=== PATIENT | male | born 1965 | race Caucasian/White ===

== ENCOUNTER 2016-10-01 08:36 | Emergency (ER) | payer OTHER ==
[~2016-10-01 08:36] MED LIST: BACT800T5 PO; CELE10TA PO; COMP1TAB PO; DEXA1TA PO; DEXA2TA PO; DEXA4TA PO; DOCU10CA PO; ELIQ5TAB PO; FURO20TA2 PO; IBUPOTC PO; KEPP1TAB2 PO; KEPP250T5 PO; KEPP500T6 PO; NORC5TAB PO; NORCOTAB PO; OMEP20CA3 PO; ONDA4TAB6 PO; PRIL20CA PO; SENN-22 PO; SENN1TAB3 PO; STOO100C PO; TEMO140C3 PO; TYLE325T5 PO; decadron PO
--- NOTE | 2016-10-01 10:08 | REP ---
CT HEAD WITHOUT CONTRAST: HISTORY: Headache. COMPARISON: 08/04/2016. The patient is status post left parietal craniotomy. A hypodense mass with surrounding vasogenic edema is present in the left parietal lobe. The vasogenic edema is decreased compared to the previous study. There is mass effect with partial effacement of the overlying cortical sulci and body of the left lateral ventricle with very minimal midline shift to the right. The degree of midline shift is decreased. There is no hydrocephalus or extracerebral collection. The visualized sinuses are clear. IMPRESSION: 1. The patient is status post left parietal craniotomy. 2. Left parietal lobe hypodense mass with vasogenic edema that has decreased compared to the previous study. Signed by Chidi Pastrana MD 10/01/2016 10:13 A
[2016-10-01] MEDS ORDERED: HYDROmorphone HCL 1 MG/ML SYRINGE (J1170) As Ordered ONE (10:48)
[2016-10-01 11:18] LABS: BASO % 0.3 % (0.0-1.0); EOS % 0.5 % (0.0-3.0); LARGE UNSTAINED CELL # 0.1 K/mm3 (0.0-0.4); LARGE UNSTAINED CELL % 1.6 % (0.0-4.0); LYMPH # 0.6 K/mm3 (1.5-4.5); LYMPH % 8.9 % (24.0-44.0); MEAN CORPUSCULAR HEMOGLOBIN 31.4 pg (27.0-33.0); MEAN CORPUSCULAR HGB CONC 33.6 g/dl (32.0-36.5); MEAN CORPUSCULAR VOLUME 93.3 fl (80.0-96.0); MONO # 0.4 K/mm3 (0.0-0.8); NEUTROPHILS # 5.1 K/mm3 (1.8-7.7); NEUTROPHILS % 82.6 % (36.0-66.0); PLATELET COUNT, AUTOMATED 163 k/mm3 (150-450); RED CELL DISTRIBUTION WIDTH 13.2 % (11.5-14.5); WHITE BLOOD COUNT 6.2 K/mm3 (4.0-10.0)
[2016-10-01 11:36] LABS: ANION GAP 10 MEQ/L (8-16); BLOOD UREA NITROGEN 12 MG/DL (7-18); CALCIUM LEVEL 8.6 MG/DL (8.5-10.1); CARBON DIOXIDE LEVEL 28 MEQ/L (21-32); CHLORIDE LEVEL 105 MEQ/L (98-107); CREATININE FOR GFR 0.77 MG/DL (0.70-1.30); GLOMERULAR FILTRATION RATE > 60.0 (>56); GLUCOSE, FASTING 82 MG/DL (70-105); POTASSIUM SERUM 3.9 MEQ/L (3.5-5.1); SODIUM LEVEL 143 MEQ/L (136-145)
--- NOTE | 2016-10-01 12:13 | EDDOCDS ---
Physician Documentation [facility] Name: Jeronimo Reza Age: 51 yrs Sex: Male : 1965 Arrival Date: 10/01/2016 Time: 08:36 Bed 15 Private MD: Amparo Sheldon J. Disposition: 10/01/16 11:47 Discharged to Home/Self Care. Impression: Headache. - Condition is Stable. - Discharge Instructions: General Headache Without Cause. - Medication Reconciliation form. - Follow up: Emergency Department; When: As needed. Follow up: Private Physician; When: Call to arrange an appointment; Reason: Wound/Symptom Recheck, Recheck today's complaints, Worsening of conditions, Continuance of care. - Problem is chronic. - Symptoms have improved. Historical: - Allergies: no known allergies; - Home Meds: 1. Eliquis 5 mg oral tab 1 tab 2 times per day (Last dose: 09/30/2016) 2. dexamethasone 1 mg Oral tab 3 times per day (Last dose: 09/30/2016) 3. omeprazole 40 mg Oral cpDR nightly (Last dose: 09/30/2016) 4. Celexa 10 mg Oral tab 1 tab once daily (Last dose: 09/30/2016) 5. levetiracetam 750 mg oral tab 1 tab twice a day (Last dose: 09/30/2016) 6. Bactrim DS 800-160 mg Oral tab 1 tab once daily (Last dose: 09/30/2016) - PMHx: Brain tumor; DVT; Glioblastoma - Left Parietal Lobe; - PSHx: brain surgery (2015); - Social history: Smoking status: Patient states was never smoker of tobacco. No barriers to communication noted, The patient speaks fluent Mozambican. - Family history: Not pertinent. - : The pt / caregiver states he / she is on anticoagulants: Eliquis Home medication list is obtained from family members, [employer] import data, pill bottles. - Exposure Risk Screening:: None identified. Vital Signs: 10/01 08:38 BP 148 / 92; Pulse 82; Resp 18; Temp 98.8(T); Pulse Ox 98% on R/A; Weight 88 kg / dem1 194.01 lbs (M); Height 5 ft. 5 in. (165.10 cm) (R); Pain 6/10; 09:21 BP 154 / 84 (auto/); pml 09:23 Pulse Ox 96% ; pml 09:30 Pulse Ox 96% ; pml 09:37 BP 148 / 81 (auto/); pml 11:10 Pain 10/10; pml 12:10 BP 141 / 79; Pulse 77; Resp 18; Temp 97.2; Pulse Ox 99% ; Pain 10/10; pml 08:38 Body Mass Index 32.28 (88.00 kg, 165.10 cm) dem1 MDM: 09:26 IV Saline Lock ordered. cc10 09:26 Dilaudid - HYDROmorphone 0.5 mg IVP once ordered. cc10 09:26 Consult: Independent Jeweler ordered. cc10 09:27 CBC with Diff Ordered. EDMS 09:27 BMP Ordered. EDMS 09:27 CRP Ordered. EDMS 09:28 CT Head Without Contrast Ordered. EDMS 10:22 Consult: Independent Jeweler complete. pml 10:49 [facility] Payment Agreement was scanned into [employer] and attached to record. jp5 10:49 Financial registration complete. jp5 11:23 CBC with Diff Reviewed. cc10 11:23 CT Head Without Contrast Reviewed. cc10 11:47 BMP Reviewed. cc10 11:47 CRP Reviewed. cc10 Administered Medications: 10:52 Drug: Dilaudid - HYDROmorphone 0.5 mg [hydromorphone 1 mg/mL injection syringe (0.5 pml mL)] Route: IVP; Site: left hand; 11:10 Follow up: Pain 07/06 Adult; Response: Confirmed pt not driving.; No significant change.[facility] Signatures: Dispatcher [employer] EDKristin Brumfield,RN RN kr3 Sheyla Lin,RN RN pml Inocencio Nichole, PANicoleC PAVida cc10 Elizabeth Gracia jp5 The chart was reviewed and I authenticate all verbal orders and agree with the evaluation and treatment provided.Attachments: 10:49 [facility] Payment Agreement jp5 MTDD
--- NOTE | 2016-10-01 12:13 | EDDOCDS ---
Nurse's Notes [facility] Name: Jeronimo Reza Age: 51 yrs Sex: Male : 1965 Arrival Date: 10/01/2016 Time: 08:36 Bed 15 Private MD: Amparo Sheldon J. Diagnosis: Headache Presentation: 10/01 08:41 Presenting complaint: Mother states: increase agitation and combativeness. Reports kr3 patient wants to live on own. Wants to speak with social sciences research scientist. Reports was told to come to ED by Dr Sheldon. This patient has no additional risk factors. Adult Sepsis Screening: The patient does not have new or worsening altered mentation. Patient's respiratory rate is less than 22. Systolic blood pressure is greater than 100. Patient has a qSOFA score of 0- Negative Sepsis Screen. Suicide/Homicide risk assessment- the patient denies having any suicidal and/or homicidal ideations and does not present with any other emotional, behavioral or mental health complaints. Status: Patient is not a job service consultant or dependent. Transition of care: patient was not received from another setting of care. 08:41 Acuity: JEFFY Level 3 kr3 08:41 Method Of Arrival: Walkin/Carried/Asstd kr3 Triage Assessment: 08:46 Headache History: This patient has a history of headaches and the character of this kr3 headache is like all previous headaches. General: Appears in no apparent distress, comfortable, Behavior is appropriate for age, cooperative. Pain: Pain currently is 5 out of 10 on a pain scale. Pain began ongoing problem Also complains of headache left side of head and worsening of vision left eye. HIV screening NA for this visit Offered previously. Neurological: Level of Consciousness is awake, alert. Neurological: Reports gait has become more unsteady. Respiratory: Respiratory effort is even, unlabored. Derm: Skin is normal. Historical: - Allergies: no known allergies; - Home Meds: 1. Eliquis 5 mg oral tab 1 tab 2 times per day (Last dose: 09/30/2016) 2. dexamethasone 1 mg Oral tab 3 times per day (Last dose: 09/30/2016) 3. omeprazole 40 mg Oral cpDR nightly (Last dose: 09/30/2016) 4. Celexa 10 mg Oral tab 1 tab once daily (Last dose: 09/30/2016) 5. levetiracetam 750 mg oral tab 1 tab twice a day (Last dose: 09/30/2016) 6. Bactrim DS 800-160 mg Oral tab 1 tab once daily (Last dose: 09/30/2016) - PMHx: Brain tumor; DVT; Glioblastoma - Left Parietal Lobe; - PSHx: brain surgery (2016); - Social history: Smoking status: Patient states was never smoker of tobacco. No barriers to communication noted, The patient speaks fluent Nicaraguan. - Family history: Not pertinent. - : The pt / caregiver states he / she is on anticoagulants: Eliquis Home medication list is obtained from family members, [employer] import data, pill bottles. - Exposure Risk Screening:: None identified. Screenin:24 Screening information is obtained from the patient. Fall risk: No risks identified. pml Assistance ADL's: requires no assistance with activities of daily living. Abuse/DV Screen: The patient / caregiver reports he/she is: not in a situation that causes fear, pain or injury. Nutritional screening: No deficits noted. Advance Directives: Currently, there is no health care proxy. home support is adequate. Assessment: 09:24 General: Appears in no apparent distress, Behavior is appropriate for age, cooperative. pml Pain: Location: headache Pain currently is 9 out of 10 on a pain scale. Neurological: Level of Consciousness is awake, alert, Oriented to person, place, time, Clay Modeler are equal bilaterally Moves all extremities. Gait is unsteady, reported by mother - not assessed at this time. Speech is normal, Facial symmetry appears normal, Reports blurred vision diplopia, headache. Cardiovascular: Capillary refill < 3 seconds. Respiratory: Airway is patent Respiratory effort is even, unlabored. GI: Abdomen is non- distended. Derm: Skin is pink, warm & dry. 09:45 General: Pt agitated, stating he wants to go home. mother at bedside refuses to take pt pml home. PSA in to see patient. ordered interventions held at this time per pt request. JOHN Larkin aware. 10:54 General: Appears in no apparent distress, Behavior is appropriate for age, cooperative. pml 10:54 Pain: Location: headache Pain currently is 8 out of 10 on a pain scale. Neurological: pml Level of Consciousness is awake, alert, Oriented to person, place, time. Cardiovascular: Capillary refill < 3 seconds. Respiratory: Airway is patent Respiratory effort is even, unlabored. Derm: Skin is pink, warm & dry. 11:35 General: mother and PSA Loc at bedside discussing options for further assistance pml with care . 12:09 General: Appears in no apparent distress, comfortable, Behavior is appropriate for age, pml cooperative. Pain: Location: headache Pain currently is 10 out of 10 on a pain scale. Neurological: Level of Consciousness is awake, alert, Oriented to person, place, time. Cardiovascular: Capillary refill < 3 seconds. Respiratory: Airway is patent Respiratory effort is even, unlabored. Derm: Skin is pink, warm & dry. Vital Signs: 08:38 BP 148 / 92; Pulse 82; Resp 18; Temp 98.8(T); Pulse Ox 98% on R/A; Weight 88 kg (M); dem1 Height 5 ft. 5 in. (165.10 cm) (R); Pain 6/10; 09:21 BP 154 / 84 (auto/); pml 09:23 Pulse Ox 96% ; pml 09:30 Pulse Ox 96% ; pml 09:37 BP 148 / 81 (auto/); pml 11:10 Pain 10/10; pml 12:10 BP 141 / 79; Pulse 77; Resp 18; Temp 97.2; Pulse Ox 99% ; Pain 10/10; pml 08:38 Body Mass Index 32.28 (88.00 kg, 165.10 cm) [facility] Vitals: 08:38 Log In Time: October 01, 2016 at 08:36. [facility] ED Course: 08:37 Patient visited by Fina Cabrera. dem1 08:37 Patient moved to Waiting dem1 08:38 Amparo Sheldon is Private Physician. dem1 08:39 Patient visited by Fina Cabrera. dem1 08:40 Patient moved to Triage 1 dem1 08:43 Triage Initiated kr3 08:49 Patient moved to 15 kr3 09:04 Patient visited by Aj Ramos PCA. jlf 09:18 Inocencio Nichole PA-C is PHCP. cc10 09:18 Sanjuanita Juares MD is Attending Physician. cc10 09:18 Patient visited by Inocencio Nichole PA-C. cc10 09:18 Patient visited by Inocencio Nichole PA-C. cc10 09:24 The patient / caregiver is instructed regarding the plan of care and ED course. Patient pml has correct armband on for positive identification. Placed in gown. Bed in low position. Call light in reach. Side rails up X2. 09:26 Patient visited by Sheyla Lin,FRANCISCO JAVIER. pml 09:43 Patient visited by Aj Ramos PCA. jlf 10:14 Patient visited by Aj Ramos PCA. jlf 10:26 Patient visited by Aj Ramos PCA. jlf 10:28 CT Head Without Contrast Returned. EDMS 10:45 Inserted peripheral IV: 20gauge IV in left hand Patient tolerated the procedure well. pml 10:49 [facility] Payment Agreement was scanned into [employer] and attached to record. jp5 10:51 Patient visited by Aj Ramos PCA. jlf 10:54 Patient visited by Sheyla Lin RN. pml 11:35 Patient visited by Sheyla Lin RN. pml 12:11 Discontinued lock intact, bleeding controlled, pressure dressing applied, No pml redness/swelling at site. No procedures done that require assistance. Administered Medications: 10:52 Drug: Dilaudid - HYDROmorphone 0.5 mg [hydromorphone 1 mg/mL injection syringe (0.5 pml mL)] Route: IVP; Site: left hand; 11:10 Follow up: Pain 07/06 Adult; Response: Confirmed pt not driving.; No significant change.pml Order Results: Lab Order: CBC with Diff; SPEC'M 10/01/16 11:06 Test: WHITE BLOOD COUNT; Value: 6.2; Range: 4.0-10.0; Units: K/mm3; Status: F Test: RED BLOOD COUNT; Value: 4.57; Range: 4.30-6.10; Units: M/mm3; Status: F Test: HEMOGLOBIN; Value: 14.3; Range: 14.0-18.0; Units: g/dl; Status: F Test: HEMATOCRIT; Value: 42.6; Range: 42.0-52.0; Units: %; Status: F Test: MEAN CORPUSCULAR VOLUME; Value: 93.3; Range: 80.0-96.0; Units: fl; Status: F Test: MEAN CORPUSCULAR HEMOGLOBIN; Value: 31.4; Range: 27.0-33.0; Units: pg; Status: F Test: MEAN CORPUSCULAR HGB CONC; Value: 33.6; Range: 32.0-36.5; Units: g/dl; Status: F Test: RED CELL DISTRIBUTION WIDTH; Value: 13.2; Range: 11.5-14.5; Units: %; Status: F Test: PLATELET COUNT, AUTOMATED; Value: 163; Range: 150-450; Units: k/mm3; Status: F Test: NEUTROPHILS %; Value: 82.6; Range: 36.0-66.0; Abnormal: Above high normal; Units: %; Status: F Test: LYMPH %; Value: 8.9; Range: 24.0-44.0; Abnormal: Below low normal; Units: %; Status: F Test: MONO %; Value: 6.0; Range: 0.0-5.0; Abnormal: Above high normal; Units: %; Status: F Test: EOS %; Value: 0.5; Range: 0.0-3.0; Units: %; Status: F Test: BASO %; Value: 0.3; Range: 0.0-1.0; Units: %; Status: F Test: LARGE UNSTAINED CELL %; Value: 1.6; Range: 0.0-4.0; Units: %; Status: F Test: NEUTROPHILS #; Value: 5.1; Range: 1.8-7.7; Units: K/mm3; Status: F Test: LYMPH #; Value: 0.6; Range: 1.5-4.5; Abnormal: Below low normal; Units: K/mm3; Status: F Test: MONO #; Value: 0.4; Range: 0.0-0.8; Units: K/mm3; Status: F Test: EOS #; Value: 0.0; Range: 0.0-0.50; Units: K/mm3; Status: F Test: BASO #; Value: 0.0; Range: 0.0-0.2; Units: K/mm3; Status: F Test: LARGE UNSTAINED CELL #; Value: 0.1; Range: 0.0-0.4; Units: K/mm3; Status: F Lab Order: BMP; SPEC'M 10/01/16 11:06 Test: GLUCOSE, FASTING; Value: 82; Range: 70-105; Units: MG/DL; Status: F Test: BLOOD UREA NITROGEN; Value: 12; Range: 7-18; Units: MG/DL; Status: F Test: CREATININE FOR GFR; Value: 0.77; Range: 0.70-1.30; Units: MG/DL; Status: F Test: GLOMERULAR FILTRATION RATE; Value: > 60.0; Range: >56; Status: F Test: SODIUM LEVEL; Value: 143; Range: 136-145; Units: MEQ/L; Status: F Test: POTASSIUM SERUM; Value: 3.9; Range: 3.5-5.1; Units: MEQ/L; Status: F Test: CHLORIDE LEVEL; Value: 105; Range: 98-107; Units: MEQ/L; Status: F Test: CARBON DIOXIDE LEVEL; Value: 28; Range: 21-32; Units: MEQ/L; Status: F Test: ANION GAP; Value: 10; Range: 8-16; Units: MEQ/L; Status: F Test: CALCIUM LEVEL; Value: 8.6; Range: 8.5-10.1; Units: MG/DL; Status: F Test Note: ; Units are mL/min/1.73 m2 Chronic Kidney Disease Staging per NKF: Stage I & II GFR >=60 Normal to Mildly Decreased Stage III GFR 30-59 Moderately Decreased Stage IV GFR 15-29 Severely Decreased Stage V GFR <15 Very Little GFR Left ESRD GFR <15 on PRINCIPAL SOFTWARE ARCHITECT Lab Order: CRP; SPEC'M 10/01/16 11:06 Test: C REACTIVE PROTEIN QUANTITATIV; Value: < 0.30; Range: 0.00-0.30; Units: MG/DL; Status: F Radiology Order: CT Head Without Contrast Test: CT Head Without Contrast REASON FOR EXAMINATION: KENNEY; CT HEAD WITHOUT CONTRAST:; ; HISTORY: Headache.; ; COMPARISON: 08/04/2016.; ; The patient is status post left parietal craniotomy. A hypodense mass with; surrounding vasogenic edema is present in the left parietal lobe. The vasogenic; edema is decreased compared to the previous study. There is mass effect with; partial effacement of the overlying cortical sulci and body of the left; lateral ventricle with very minimal midline shift to the right. The degree of; midline shift is decreased. There is no hydrocephalus or extracerebral; collection. The visualized sinuses are clear.; ; IMPRESSION:; ; 1. The patient is status post left parietal craniotomy.; ; 2. Left parietal lobe hypodense mass with vasogenic edema that has decreased; compared to the previous study.; ; ; Signed by; Chidi Pastrana MD 10/01/2016 10:13 A; Outcome: 11:47 Discharge ordered by Provider. cc10 12:11 Discharge Assessment: Patient awake, alert and oriented x 3. No cognitive and/or pml functional deficits noted. Patient verbalized understanding of disposition instructions. patient administered narcotics - yes. Pt provided with safe discharge. The following High Risk Discharge criteria are identified: None. Discharged to home ambulatory, with parent. Condition: good Condition: stable. Discharge instructions given to patient, parents Instructed on discharge instructions, follow up and referral plans. Demonstrated understanding of instructions, Pt was receptive of discharge instructions/ teaching. CT Study completed. Property sent home with patient. 12:12 Patient left the ED. pml Signatures: Dispatcher [employer] EDMS Kristin Price,RN RN kr3 Sheyla LinRN RN pml Fina Cabrera Jordain, LORA WALL TAPER HELPER Inocencio Fu PA-C PAVida cc10 Elizabeth Gracia jp5 MTDD
--- NOTE | 2016-10-03 13:14 | EDDOCDS ---
Nurse's Notes [facility] Name: Jeronimo Reza Age: 51 yrs Sex: Male : 1965 Arrival Date: 10/01/2016 Time: 08:36 Bed 15 Private MD: Amparo Sheldon J. Diagnosis: Headache Presentation: 10/01 08:41 Presenting complaint: Mother states: increase agitation and combativeness. Reports kr3 patient wants to live on own. Wants to speak with social media director. Reports was told to come to ED by Dr Sheldon. This patient has no additional risk factors. Adult Sepsis Screening: The patient does not have new or worsening altered mentation. Patient's respiratory rate is less than 22. Systolic blood pressure is greater than 100. Patient has a qSOFA score of 0- Negative Sepsis Screen. Suicide/Homicide risk assessment- the patient denies having any suicidal and/or homicidal ideations and does not present with any other emotional, behavioral or mental health complaints. Status: Patient is not a bellhop service captain or dependent. Transition of care: patient was not received from another setting of care. 08:41 Acuity: JEFFY Level 3 kr3 08:41 Method Of Arrival: Walkin/Carried/Asstd kr3 Triage Assessment: 08:46 Headache History: This patient has a history of headaches and the character of this kr3 headache is like all previous headaches. General: Appears in no apparent distress, comfortable, Behavior is appropriate for age, cooperative. Pain: Pain currently is 5 out of 10 on a pain scale. Pain began ongoing problem Also complains of headache left side of head and worsening of vision left eye. HIV screening NA for this visit Offered previously. Neurological: Level of Consciousness is awake, alert. Neurological: Reports gait has become more unsteady. Respiratory: Respiratory effort is even, unlabored. Derm: Skin is normal. Historical: - Allergies: no known allergies; - Home Meds: 1. Eliquis 5 mg oral tab 1 tab 2 times per day (Last dose: 09/30/2016) 2. dexamethasone 1 mg Oral tab 3 times per day (Last dose: 09/30/2016) 3. omeprazole 40 mg Oral cpDR nightly (Last dose: 09/30/2016) 4. Celexa 10 mg Oral tab 1 tab once daily (Last dose: 09/30/2016) 5. levetiracetam 750 mg oral tab 1 tab twice a day (Last dose: 09/30/2016) 6. Bactrim DS 800-160 mg Oral tab 1 tab once daily (Last dose: 09/30/2016) - PMHx: Brain tumor; DVT; Glioblastoma - Left Parietal Lobe; - PSHx: brain surgery (2016); - Social history: Smoking status: Patient states was never smoker of tobacco. No barriers to communication noted, The patient speaks fluent Peruvian. - Family history: Not pertinent. - : The pt / caregiver states he / she is on anticoagulants: Eliquis Home medication list is obtained from family members, [employer] import data, pill bottles. - Exposure Risk Screening:: None identified. Screenin:24 Screening information is obtained from the patient. Fall risk: No risks identified. pml Assistance ADL's: requires no assistance with activities of daily living. Abuse/DV Screen: The patient / caregiver reports he/she is: not in a situation that causes fear, pain or injury. Nutritional screening: No deficits noted. Advance Directives: Currently, there is no health care proxy. home support is adequate. Assessment: 09:24 General: Appears in no apparent distress, Behavior is appropriate for age, cooperative. pml Pain: Location: headache Pain currently is 9 out of 10 on a pain scale. Neurological: Level of Consciousness is awake, alert, Oriented to person, place, time, Plasterer Stucco are equal bilaterally Moves all extremities. Gait is unsteady, reported by mother - not assessed at this time. Speech is normal, Facial symmetry appears normal, Reports blurred vision diplopia, headache. Cardiovascular: Capillary refill < 3 seconds. Respiratory: Airway is patent Respiratory effort is even, unlabored. GI: Abdomen is non- distended. Derm: Skin is pink, warm & dry. 09:45 General: Pt agitated, stating he wants to go home. mother at bedside refuses to take pt pml home. PSA in to see patient. ordered interventions held at this time per pt request. JOHN Larkin aware. 10:54 General: Appears in no apparent distress, Behavior is appropriate for age, cooperative. pml 10:54 Pain: Location: headache Pain currently is 8 out of 10 on a pain scale. Neurological: pml Level of Consciousness is awake, alert, Oriented to person, place, time. Cardiovascular: Capillary refill < 3 seconds. Respiratory: Airway is patent Respiratory effort is even, unlabored. Derm: Skin is pink, warm & dry. 11:35 General: mother and PRIYANK Monterroso at bedside discussing options for further assistance pml with care . 12:09 General: Appears in no apparent distress, comfortable, Behavior is appropriate for age, pml cooperative. Pain: Location: headache Pain currently is 10 out of 10 on a pain scale. Neurological: Level of Consciousness is awake, alert, Oriented to person, place, time. Cardiovascular: Capillary refill < 3 seconds. Respiratory: Airway is patent Respiratory effort is even, unlabored. Derm: Skin is pink, warm & dry. Social Work Consult: 12:29 Social Work Note: Met with pt and his mother at length. Both appear stressed over their ca situation and pt's dx. Mother is primary caregiver and expresses frustration with pt's deterioration and difficulty in caring for him due to pt's perceived lack of cooperation. Pt has been telling mom he wants to live elsewhere, at this time that is not feasible due to his need for help at home. Took mother to family room to talk and offered emotional support. Resources offered for care and for counseling. Accepted by mother. Asked Matti Monterroso to speak with the family to determine eligibility for care mngt services. Vital Signs: 08:38 BP 148 / 92; Pulse 82; Resp 18; Temp 98.8(T); Pulse Ox 98% on R/A; Weight 88 kg (M); dem1 Height 5 ft. 5 in. (165.10 cm) (R); Pain 6/10; 09:21 BP 154 / 84 (auto/); pml 09:23 Pulse Ox 96% ; pml 09:30 Pulse Ox 96% ; pml 09:37 BP 148 / 81 (auto/); pml 11:10 Pain 10/10; pml 12:10 BP 141 / 79; Pulse 77; Resp 18; Temp 97.2; Pulse Ox 99% ; Pain 10/10; pml 08:38 Body Mass Index 32.28 (88.00 kg, 165.10 cm) [facility] Vitals: 08:38 Log In Time: October 01, 2016 at 08:36. [facility] ED Course: 08:37 Patient visited by Fina Cabrera. [facility] 08:37 Patient moved to Waiting [facility] 08:38 Amparo Sheldon is Private Physician. dem1 08:39 Patient visited by Fina Cabrera. dem1 08:40 Patient moved to Triage 1 dem1 08:43 Triage Initiated kr3 08:49 Patient moved to 15 kr3 09:04 Patient visited by Aj Ramos PCA. jlf 09:18 Inocencio Nichole PA-C is PHCP. cc10 09:18 Sanjuanita Juares MD is Attending Physician. cc10 09:18 Patient visited by Inocencio Nichole PA-C. cc10 09:18 Patient visited by Inocencio Nichole PA-C. cc10 09:24 The patient / caregiver is instructed regarding the plan of care and ED course. Patient pml has correct armband on for positive identification. Placed in gown. Bed in low position. Call light in reach. Side rails up X2. 09:26 Patient visited by Sheyla Lin RN. pml 09:43 Patient visited by Aj Ramos PCA. jlf 10:14 Patient visited by Aj Ramos PCA. jlf 10:26 Patient visited by Aj Ramos PCA. jlf 10:28 CT Head Without Contrast Returned. EDMS 10:45 Inserted peripheral IV: 20gauge IV in left hand Patient tolerated the procedure well. pml 10:49 [facility] Payment Agreement was scanned into [employer] and attached to record. jp5 10:51 Patient visited by Aj Ramos PCA. jlf 10:54 Patient visited by Sheyla Lin,FRANCISCO JAVIER. pml 11:35 Patient visited by Sheyla Lin RN. pml 12:11 Discontinued lock intact, bleeding controlled, pressure dressing applied, No pml redness/swelling at site. No procedures done that require assistance. 10/02 07:29 T-Sheet-- Draft Copy was scanned into [employer] and attached to record. gb Administered Medications: 10/01 10:52 Drug: Dilaudid - HYDROmorphone 0.5 mg [hydromorphone 1 mg/mL injection syringe (0.5 pml mL)] Route: IVP; Site: left hand; 11:10 Follow up: Pain 10 Adult; Response: Confirmed pt not driving.; No significant change.pml Order Results: Lab Order: CBC with Diff; SPEC'M 10/01/16 11:06 Test: WHITE BLOOD COUNT; Value: 6.2; Range: 4.0-10.0; Units: K/mm3; Status: F Test: RED BLOOD COUNT; Value: 4.57; Range: 4.30-6.10; Units: M/mm3; Status: F Test: HEMOGLOBIN; Value: 14.3; Range: 14.0-18.0; Units: g/dl; Status: F Test: HEMATOCRIT; Value: 42.6; Range: 42.0-52.0; Units: %; Status: F Test: MEAN CORPUSCULAR VOLUME; Value: 93.3; Range: 80.0-96.0; Units: fl; Status: F Test: MEAN CORPUSCULAR HEMOGLOBIN; Value: 31.4; Range: 27.0-33.0; Units: pg; Status: F Test: MEAN CORPUSCULAR HGB CONC; Value: 33.6; Range: 32.0-36.5; Units: g/dl; Status: F Test: RED CELL DISTRIBUTION WIDTH; Value: 13.2; Range: 11.5-14.5; Units: %; Status: F Test: PLATELET COUNT, AUTOMATED; Value: 163; Range: 150-450; Units: k/mm3; Status: F Test: NEUTROPHILS %; Value: 82.6; Range: 36.0-66.0; Abnormal: Above high normal; Units: %; Status: F Test: LYMPH %; Value: 8.9; Range: 24.0-44.0; Abnormal: Below low normal; Units: %; Status: F Test: MONO %; Value: 6.0; Range: 0.0-5.0; Abnormal: Above high normal; Units: %; Status: F Test: EOS %; Value: 0.5; Range: 0.0-3.0; Units: %; Status: F Test: BASO %; Value: 0.3; Range: 0.0-1.0; Units: %; Status: F Test: LARGE UNSTAINED CELL %; Value: 1.6; Range: 0.0-4.0; Units: %; Status: F Test: NEUTROPHILS #; Value: 5.1; Range: 1.8-7.7; Units: K/mm3; Status: F Test: LYMPH #; Value: 0.6; Range: 1.5-4.5; Abnormal: Below low normal; Units: K/mm3; Status: F Test: MONO #; Value: 0.4; Range: 0.0-0.8; Units: K/mm3; Status: F Test: EOS #; Value: 0.0; Range: 0.0-0.50; Units: K/mm3; Status: F Test: BASO #; Value: 0.0; Range: 0.0-0.2; Units: K/mm3; Status: F Test: LARGE UNSTAINED CELL #; Value: 0.1; Range: 0.0-0.4; Units: K/mm3; Status: F Lab Order: [facility]; SPEC'M 10/01/16 11:06 Test: GLUCOSE, FASTING; Value: 82; Range: 70-105; Units: MG/DL; Status: F Test: BLOOD UREA NITROGEN; Value: 12; Range: 7-18; Units: MG/DL; Status: F Test: CREATININE FOR GFR; Value: 0.77; Range: 0.70-1.30; Units: MG/DL; Status: F Test: GLOMERULAR FILTRATION RATE; Value: > 60.0; Range: >56; Status: F Test: SODIUM LEVEL; Value: 143; Range: 136-145; Units: MEQ/L; Status: F Test: POTASSIUM SERUM; Value: 3.9; Range: 3.5-5.1; Units: MEQ/L; Status: F Test: CHLORIDE LEVEL; Value: 105; Range: 98-107; Units: MEQ/L; Status: F Test: CARBON DIOXIDE LEVEL; Value: 28; Range: 21-32; Units: MEQ/L; Status: F Test: ANION GAP; Value: 10; Range: 8-16; Units: MEQ/L; Status: F Test: CALCIUM LEVEL; Value: 8.6; Range: 8.5-10.1; Units: MG/DL; Status: F Test Note: ; Units are mL/min/1.73 m2 Chronic Kidney Disease Staging per NKF: Stage I & II GFR >=60 Normal to Mildly Decreased Stage III GFR 30-59 Moderately Decreased Stage IV GFR 15-29 Severely Decreased Stage V GFR <15 Very Little GFR Left ESRD GFR <15 on ENDLESS STEAMER TENDER Lab Order: CRP; SPEC'M 10/01/16 11:06 Test: C REACTIVE PROTEIN QUANTITATIV; Value: < 0.30; Range: 0.00-0.30; Units: MG/DL; Status: F Radiology Order: CT Head Without Contrast Test: CT Head Without Contrast REASON FOR EXAMINATION: KENNEY; CT HEAD WITHOUT CONTRAST:; ; HISTORY: Headache.; ; COMPARISON: 08/04/2016.; ; The patient is status post left parietal craniotomy. A hypodense mass with; surrounding vasogenic edema is present in the left parietal lobe. The vasogenic; edema is decreased compared to the previous study. There is mass effect with; partial effacement of the overlying cortical sulci and body of the left; lateral ventricle with very minimal midline shift to the right. The degree of; midline shift is decreased. There is no hydrocephalus or extracerebral; collection. The visualized sinuses are clear.; ; IMPRESSION:; ; 1. The patient is status post left parietal craniotomy.; ; 2. Left parietal lobe hypodense mass with vasogenic edema that has decreased; compared to the previous study.; ; ; Signed by; Chidi Pastrana MD 10/01/2016 10:13 A; Outcome: 11:47 Discharge ordered by Provider. cc10 12:11 Discharge Assessment: Patient awake, alert and oriented x 3. No cognitive and/or pml functional deficits noted. Patient verbalized understanding of disposition instructions. patient administered narcotics - yes. Pt provided with safe discharge. The following High Risk Discharge criteria are identified: None. Discharged to home ambulatory, with parent. Condition: good Condition: stable. Discharge instructions given to patient, parents Instructed on discharge instructions, follow up and referral plans. Demonstrated understanding of instructions, Pt was receptive of discharge instructions/ teaching. CT Study completed. Property sent home with patient. 12:12 Patient left the ED. pml Signatures: Dispatcher [employer] EDMS Dianne Field, PRIYANK PSA ca Lissette Key, Kristin Vaughan,RN RN kr3 Sheyla Lin,FRANCISCO JAVIER RN Fina Thapa1 Aj Ramos, ASP NET PROGRAMMER ASP NET PROGRAMMER jlf Inocencio Nichole, PA-C PA-C cc10 Elizabeth Gracia jp5 Chart Complete MTDD
--- NOTE | 2016-10-03 13:14 | EDDOCDS ---
Physician Documentation [facility] Name: Jeronimo Reza Age: 51 yrs Sex: Male : 1965 Arrival Date: 10/01/2016 Time: 08:36 Bed 15 Private MD: Amparo Sheldon J. Disposition: 10/01/16 11:47 Discharged to Home/Self Care. Impression: Headache. - Condition is Stable. - Discharge Instructions: General Headache Without Cause. - Medication Reconciliation form. - Follow up: Emergency Department; When: As needed. Follow up: Private Physician; When: Call to arrange an appointment; Reason: Wound/Symptom Recheck, Recheck today's complaints, Worsening of conditions, Continuance of care. - Problem is chronic. - Symptoms have improved. Historical: - Allergies: no known allergies; - Home Meds: 1. Eliquis 5 mg oral tab 1 tab 2 times per day (Last dose: 09/30/2016) 2. dexamethasone 1 mg Oral tab 3 times per day (Last dose: 09/30/2016) 3. omeprazole 40 mg Oral cpDR nightly (Last dose: 09/30/2016) 4. Celexa 10 mg Oral tab 1 tab once daily (Last dose: 09/30/2016) 5. levetiracetam 750 mg oral tab 1 tab twice a day (Last dose: 09/30/2016) 6. Bactrim DS 800-160 mg Oral tab 1 tab once daily (Last dose: 09/30/2016) - PMHx: Brain tumor; DVT; Glioblastoma - Left Parietal Lobe; - PSHx: brain surgery (2015); - Social history: Smoking status: Patient states was never smoker of tobacco. No barriers to communication noted, The patient speaks fluent Citizen Of [place]. - Family history: Not pertinent. - : The pt / caregiver states he / she is on anticoagulants: Eliquis Home medication list is obtained from family members, [employer] import data, pill bottles. - Exposure Risk Screening:: None identified. Vital Signs: 10/01 08:38 BP 148 / 92; Pulse 82; Resp 18; Temp 98.8(T); Pulse Ox 98% on R/A; Weight 88 kg / dem1 194.01 lbs (M); Height 5 ft. 5 in. (165.10 cm) (R); Pain 6/10; 09:21 BP 154 / 84 (auto/); pml 09:23 Pulse Ox 96% ; pml 09:30 Pulse Ox 96% ; pml 09:37 BP 148 / 81 (auto/); pml 11:10 Pain 10/10; pml 12:10 BP 141 / 79; Pulse 77; Resp 18; Temp 97.2; Pulse Ox 99% ; Pain 10/10; pml 08:38 Body Mass Index 32.28 (88.00 kg, 165.10 cm) dem1 MDM: 09:26 IV Saline Lock ordered. cc10 09:26 Dilaudid - HYDROmorphone 0.5 mg IVP once ordered. cc10 09:26 Consult: Law Writer ordered. cc10 09:27 CBC with Diff Ordered. EDMS 09:27 BMP Ordered. EDMS 09:27 CRP Ordered. EDMS 09:28 CT Head Without Contrast Ordered. EDMS 10:22 Consult: Law Writer complete. pml 10:49 [facility] Payment Agreement was scanned into [employer] and attached to record. jp5 10:49 Financial registration complete. jp5 11:23 CBC with Diff Reviewed. cc10 11:23 CT Head Without Contrast Reviewed. cc10 11:47 BMP Reviewed. cc10 11:47 CRP Reviewed. cc10 10/02 07:29 T-Sheet-- Draft Copy was scanned into [employer] and attached to record. gb Administered Medications: 10/01 10:52 Drug: Dilaudid - HYDROmorphone 0.5 mg [hydromorphone 1 mg/mL injection syringe (0.5 pml mL)] Route: IVP; Site: left hand; 11:10 Follow up: Pain 10/10 Adult; Response: Confirmed pt not driving.; No significant change.[facility] Signatures: Dispatcher [employer] EDMS Lissette Key, Reg Reg gb Kristin Price,RN RN duke3 Sheyla LinRN RN pml Inocencio Nichole PA-C PA-C cc10 Elizabeth Gracia jp5 The chart was reviewed and I authenticate all verbal orders and agree with the evaluation and treatment provided.Attachments: 10:49 [facility] Payment Agreement jp5 10/02 07:29 T-Sheet-- Draft Copy gb Chart Complete MTDD
--- NOTE | 2016-10-03 13:14 | EDDOCDS ---
Physician Documentation [facility] Name: Jeronimo Reza Age: 51 yrs Sex: Male : 1965 Arrival Date: 10/01/2016 Time: 08:36 Bed 15 Private MD: Amparo Sheldon J. Disposition: 10/01/16 11:47 Discharged to Home/Self Care. Impression: Headache. - Condition is Stable. - Discharge Instructions: General Headache Without Cause. - Medication Reconciliation form. - Follow up: Emergency Department; When: As needed. Follow up: Private Physician; When: Call to arrange an appointment; Reason: Wound/Symptom Recheck, Recheck today's complaints, Worsening of conditions, Continuance of care. - Problem is chronic. - Symptoms have improved. Historical: - Allergies: no known allergies; - Home Meds: 1. Eliquis 5 mg oral tab 1 tab 2 times per day (Last dose: 09/30/2016) 2. dexamethasone 1 mg Oral tab 3 times per day (Last dose: 09/30/2016) 3. omeprazole 40 mg Oral cpDR nightly (Last dose: 09/30/2016) 4. Celexa 10 mg Oral tab 1 tab once daily (Last dose: 09/30/2016) 5. levetiracetam 750 mg oral tab 1 tab twice a day (Last dose: 09/30/2016) 6. Bactrim DS 800-160 mg Oral tab 1 tab once daily (Last dose: 09/30/2016) - PMHx: Brain tumor; DVT; Glioblastoma - Left Parietal Lobe; - PSHx: brain surgery (2015); - Social history: Smoking status: Patient states was never smoker of tobacco. No barriers to communication noted, The patient speaks fluent Bangladeshi. - Family history: Not pertinent. - : The pt / caregiver states he / she is on anticoagulants: Eliquis Home medication list is obtained from family members, [employer] import data, pill bottles. - Exposure Risk Screening:: None identified. Vital Signs: 10/01 08:38 BP 148 / 92; Pulse 82; Resp 18; Temp 98.8(T); Pulse Ox 98% on R/A; Weight 88 kg / dem1 194.01 lbs (M); Height 5 ft. 5 in. (165.10 cm) (R); Pain 6/10; 09:21 BP 154 / 84 (auto/); pml 09:23 Pulse Ox 96% ; pml 09:30 Pulse Ox 96% ; pml 09:37 BP 148 / 81 (auto/); pml 11:10 Pain 10/10; pml 12:10 BP 141 / 79; Pulse 77; Resp 18; Temp 97.2; Pulse Ox 99% ; Pain 10/10; pml 08:38 Body Mass Index 32.28 (88.00 kg, 165.10 cm) dem1 MDM: 09:26 IV Saline Lock ordered. cc10 09:26 Dilaudid - HYDROmorphone 0.5 mg IVP once ordered. cc10 09:26 Consult: Welder/Fabricator ordered. cc10 09:27 CBC with Diff Ordered. EDMS 09:27 BMP Ordered. EDMS 09:27 CRP Ordered. EDMS 09:28 CT Head Without Contrast Ordered. EDMS 10:22 Consult: Welder/Fabricator complete. pml 10:49 [facility] Payment Agreement was scanned into [employer] and attached to record. jp5 10:49 Financial registration complete. jp5 11:23 CBC with Diff Reviewed. cc10 11:23 CT Head Without Contrast Reviewed. cc10 11:47 BMP Reviewed. cc10 11:47 CRP Reviewed. cc10 10/02 07:29 T-Sheet-- Draft Copy was scanned into [employer] and attached to record. gb Administered Medications: 10/01 10:52 Drug: Dilaudid - HYDROmorphone 0.5 mg [hydromorphone 1 mg/mL injection syringe (0.5 pml mL)] Route: IVP; Site: left hand; 11:10 Follow up: Pain 10/10 Adult; Response: Confirmed pt not driving.; No significant change.[facility] Signatures: Dispatcher [employer] EDMS Lissette Key, Reg Reg gb Kristin Price,RN RN duke3 Sheyla LinRN RN pml Inocencio Nichole PA-C PA-C cc10 Elizabeth Gracia jp5 The chart was reviewed and I authenticate all verbal orders and agree with the evaluation and treatment provided.Attachments: 10:49 [facility] Payment Agreement jp5 10/02 07:29 T-Sheet-- Draft Copy gb Chart Complete MTDD
== END 2016-10-01 12:12 | disposition home or self-care (01) ==
LOC: M ED 08:36
DX: R51 Headache (principal); C71.9 Malignant neoplasm of brain, unspecified; Z86.718 Personal history of other venous thrombosis and embolism; Z79.01 Long term (current) use of anticoagulants; Z79.899 Other long term (current) drug therapy
CPT/HCPCS: 36415; 70450; 80048; 85025; 86140; 96374; 99284; J1170

== ENCOUNTER 2016-10-02 12:04 | Emergency (ER) | payer OTHER ==
--- NOTE | 2016-10-02 16:11 | REP ---
MRI LUMBAR SPINE WITHOUT AND WITH CONTRAST: HISTORY: Right lower extremity weakness. CONTRAST: ProHance 15 mL. Decreased signal intensity on T2-weighted images is present in the L2-3 through L5-S1 intervertebral discs. The L2-3 through L4-5 intervertebral discs are decreased in height. These findings are consistent with disc degeneration. A diffuse disc bulge is present at the L2-3 level. There is minimal compression of the thecal sac. The L2 nerves exit the neural foramina without compression. A diffuse disc bulge is present at the L3-4 level. There is minimal compression of the thecal sac. The L3 nerves exit the neural foramina without compression. A diffuse disc bulge is present at the L4-5 level. There is minimal compression of the thecal sac. There is hypertrophy of the posterior articulating facets. The L4 nerves exit the neural foramina without compression. A diffuse disc bulge is present at the L5-S1 level. This abuts the thecal sac. There is hypertrophy of the posterior articulating facets. The L5 nerves exit the neural foramina without compression. The conus medullaris terminates at the level of the L1-2 intervertebral disc. There appears to be a small thoracic spinal cord syrinx. There is no abnormal enhancement. A hemangioma is present in the L2 vertebral body. Normal signal intensity is present in the remaining lumbar vertebral bodies. IMPRESSION: 1. Diffuse disc bulges at the L2-3 through L4-5 levels with minimal thecal sac compression. 2. Diffuse disc bulge at the L5-S1 level. This abuts the thecal sac. 3. Small thoracic spinal cord syrinx. MRI of the thoracic spine may be helpful for further evaluation. Signed by Chidi Pastarna MD 10/02/2016 04:12 P
--- NOTE | 2016-10-02 16:24 | REP ---
MR BRAIN WITHOUT AND WITH CONTRAST: HISTORY: Glioblastoma. CONTRAST: ProHance 15 mL. COMPARISON: MR date 03/19/[address] date 07/29/2016 There has been a marked increase in size of the enhancing glioblastoma present in the left temporal and parietal lobes. There is no extension into the left occipital lobe, corpus callosum, and posterior right parietal and temporal lobes. The mass measures 9.2 cm in transverse x 7.2 cm in AP x 6.7 cm in cephalocaudal dimensions. Surrounding edema is present. The degree of edema is increased compared to the previous study. There is mass effect with effacement of the overlying cortical sulci and partial effacement of the posterior body, atrium, and occipital horn of the left lateral ventricle. There is very minimal mid-shift to the right. There is no hydrocephalus or extracerebral collection. The sinuses are clear. IMPRESSION: There has been a marked increase in size of the left temperoparietal lobe glioblastoma compared to the previous study. There is mass effect with minimal midline shift to the right and that is unchanged compared to the previous study. Signed by Chidi Pastrana MD 10/02/2016 04:30 P
[2016-10-02] MEDS ORDERED: dexameTHASONE 4 MG/ML 1ML VIAL (J1100) As Ordered ONE (18:37)
--- NOTE | 2016-10-02 21:00 | EDDOCDS ---
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 mom states he was seen srm here yesterday for headache and forgot to tell us. after discharge , fell when getting out of the car at home and again in the house. pt has hx of gleoblastoma. Adult Sepsis Screening: The patient does not have new or worsening altered mentation. Patient's respiratory rate is less than 22. Systolic blood pressure is greater than 100. Patient has a qSOFA score of 0- Negative Sepsis Screen. Suicide/Homicide risk assessment- the patient denies having any suicidal and/or homicidal ideations and does not present with any other emotional, behavioral or mental health complaints. Status: Patient is not a sales service manager or dependent. Transition of care: patient was not received from another setting of care. 12:08 Method Of Arrival: Wheelchair [facility] 12:08 Acuity: JEFFY Level 3 [facility] Triage Assessment: 12:08 General: Appears in no apparent distress, Behavior is appropriate for age, cooperative. srm Pain: Location: right leg pain Pain currently is 8 out of 10 on a pain scale. HIV screening NA for this visit Offered previously. Historical: - Allergies: no known allergies; - Home Meds: 1. Bactrim DS 800-160 mg Oral tab 1 tab once daily 2. Celexa 10 mg Oral tab 1 tab once daily 3. dexamethasone 1 mg Oral tab 3 times per day 4. Eliquis 5 mg oral tab 1 tab 2 times per day 5. levetiracetam 750 mg oral tab 1 tab daily 6. omeprazole 40 mg Oral cpDR nightly - PMHx: Glioblastoma - Left Parietal Lobe; DVT; GERD; Depression; - PSHx: brain surgery; - The history from nurses notes was reviewed: and I agree with what is documented. - Social history: Smoking status: Patient states was never smoker of tobacco. No barriers to communication noted, The patient speaks fluent Welsh, Speaks appropriately for age. - : The pt / caregiver states he / she is on anticoagulants: Eliquis Home medication list is obtained from the patient. - Hospitalizations: : No recent hospitalization is reported. - Exposure Risk Screening:: None identified. - Immunization history:: All immunizations up-to-date. - Family history: Not pertinent. - Social history:: the patient is a non-smoker, the patient does not drink alcohol. Screenin:21 Screening information is obtained from the patient. rs3 13:51 Fall risk: At risk due to gait disturbance, prior history of falls. Assistance ADL's: rs3 Requires assistance with meal preparation, this assistance is provided by family members, ambulation, assistance is provided by family members, housework, assistance is provided by family members, medication administration, assistance is provided by family members. Abuse/DV Screen: The patient / caregiver reports he/she is: not in a situation that causes fear, pain or injury. Nutritional screening: No deficits noted. Advance Directives: Currently, there is a health care proxy, Saige Reza (mother). There is an active DNR order but there is no copy available at this time. home support is adequate. Assessment: 13:18 General: Appears in no apparent distress, Behavior is appropriate for age, cooperative. rs3 Pain: Denies pain. Neurological: Level of Consciousness is awake, alert, Oriented to person, place, time, Senior Functional Analyst are weak on right Weakness in right arm(s) leg(s) Gait is unsteady, Speech is normal, Facial symmetry appears normal, Reports weakness in right leg. . Respiratory: Airway is patent Respiratory effort is even, unlabored, Respiratory pattern is regular, symmetrical. Derm: Skin is pink, warm & dry. Bruising that is on right knee Reports falling due to leg weakness. states" right leg gives out". 14:30 General: patient in MRI. rs3 16:06 General: Appears in no apparent distress, Behavior is appropriate for age, cooperative, rs3 Waiting on MRI results. denies of pain/acute distress. family at bedside. 17:06 General: Appears in no apparent distress, Behavior is appropriate for age, cooperative, rs3 patient requesting food to eat. family at bedside. attending provider with patient and family, made aware of the MRI results. waiting for the further care/plan. reiterate the plan of care. patient and family understands. . Cardiovascular: Capillary refill < 3 seconds. 18:30 General: Appears in no apparent distress, Behavior is cooperative, denies of rs3 pain/distress. report called to [facility] ER given to fox Hernandez RN. patient remains confused, pleasant. keep asking for food. reinforced him on NPO status. . 19:30 General: Appears in no apparent distress, Behavior is appropriate for age, cooperative, rs3 denies of acute distress. watching TV. Waiting for ambulance transfer . 20:47 General: Appears in no apparent distress, Behavior is cooperative, Resting comfortable. rs3 denies of pain/distress. waiting for ambulance transport. breathes easy. denies of headache. . Vital Signs: 12:06 BP 143 / 90; Pulse 77; Resp 16; Temp 96.7(T); Pulse Ox 99% on R/A; Weight 88 kg; Height sew 5 ft. 5 in. (165.10 cm); Pain 5/10; 12:24 BP 153 / 88 (auto/); rs3 12:26 Pulse Ox 98% ; rs3 17:04 BP 144 / 82 (auto/); rs3 17:05 Pulse 70 MON; Pulse Ox 95% ; rs3 17:36 BP 135 / 76 (auto/); rs3 17:37 Pulse 62 MON; Pulse Ox 97% ; rs3 18:03 Pulse 58 MON; Pulse Ox 98% ; rs3 18:06 BP 141 / 84 (auto/); rs3 18:21 BP 151 / 97 (auto/); rs3 18:22 Pulse 64 MON; Pulse Ox 98% ; rs3 18:41 BP 128 / 73 (auto/); rs3 18:42 Pulse 62 MON; Pulse Ox 96% ; rs3 19:06 BP 139 / 83 (auto/); rs3 19:07 Pulse 62 MON; Pulse Ox 95% ; rs3 19:21 BP 128 / 91 (auto/); rs3 19:22 Pulse 66 MON; Pulse Ox 95% ; rs3 20:12 Pulse 56 MON; rs3 20:15 BP 120 / 75 (auto/); rs3 20:17 Pulse 58 MON; Pulse Ox 96% ; rs3 20:45 Pulse 58 MON; Pulse Ox 93% ; rs3 20:58 BP 150 / 58; Pulse 58 MON; Resp 18; Temp 98.2; Pulse Ox 92% ; Pain 0/10; rs3 12:06 Body Mass Index 32.28 (88.00 kg, 165.10 cm) sew Vitals: 12:06 Log In Time: October 02, 2016 at 12:04. sew ED Course: 12:06 Patient visited by Emilie Alarcon. sew 12:06 Kentrell Lees is Private Physician. sew 12:06 Patient moved to Waiting sew 12:08 Patient visited by Emilie Alarcon. sew 12:08 Patient moved to Pre RCE sew 12:13 Triage Initiated srm 12:16 Kerri Collins RN is Primary Nurse. srm 12:16 Patient moved to 15 srm 12:21 Damaso Bush MD is Attending Physician. pc 12:43 Patient visited by Kerri Collins RN. rs3 12:47 Patient visited by Damaso Bush MD. pc 13:18 Patient visited by Kerri Collins RN. rs3 13:51 Patient visited by Kerri Collins RN. rs3 13:52 Inserted saline lock: 22 gauge in right forearm. rs3 14:18 [facility] [place] Payment Agreement was scanned into [employer] and attached to record. mm15 15:15 Patient visited by Damaso Bush MD. pc 16:04 Patient visited by Kerri Collins RN. rs3 16:16 MRI LS SPINE W/O FOLL WITH CON Returned. EDMS 17:02 MRI Brain W/O FOLL BY WITH Returned. EDMS 17:05 Patient visited by Kerri Collins RN. rs3 18:05 Patient visited by Kerri Collins RN. rs3 18:43 Patient visited by Kerri Collins RN. rs3 19:07 Patient visited by Jos Gilliam PCA. kb5 20:06 Patient visited by Jos Gilliam PCA. kb5 20:59 The patient / caregiver is instructed regarding the plan of care and ED course. rs3 20:59 No procedures done that require assistance. rs3 Administered Medications: 18:42 Drug: Dexamethasone 8 mg [dexamethasone 4 mg/mL injection solution] Route: IV; Rate: rs3 bolus; Site: right forearm; Order Results: Radiology Order: MRI Brain W/O FOLL BY WITH Test: MRI Brain W/O FOLL BY WITH REASON FOR EXAMINATION: Hx of Glioblastoma, new RLE weakness; MR BRAIN WITHOUT AND WITH CONTRAST:; ; HISTORY: Glioblastoma.; ; CONTRAST: ProHance 15 mL.; ; COMPARISON: MR date 03/19/[address] date 07/29/2016; ; There has been a marked increase in size of the enhancing glioblastoma present in; the left temporal and parietal lobes. There is no extension into the left; occipital lobe, corpus callosum, and posterior right parietal and temporal lobes.; The mass measures 9.2 cm in transverse x 7.2 cm in AP x 6.7 cm in cephalocaudal; dimensions. Surrounding edema is present. The degree of edema is increased; compared to the previous study. There is mass effect with effacement of the; overlying cortical sulci and partial effacement of the posterior body, atrium,; and occipital horn of the left lateral ventricle. There is very minimal mid-shift; to the right. There is no hydrocephalus or extracerebral collection. The sinuses; are clear.; ; IMPRESSION:; ; There has been a marked increase in size of the left temperoparietal lobe; glioblastoma compared to the previous study. There is mass effect with minimal; midline shift to the right and that is unchanged compared to the previous study.; ; ; ; Signed by; Chidi Pastrana MD 10/02/2016 04:30 P; Radiology Order: MRI LS SPINE W/O FOLL WITH CON Test: MRI LS SPINE W/O FOLL WITH CON REASON FOR EXAMINATION: Hx of Glioblastoma new RLE weakness; MRI LUMBAR SPINE WITHOUT AND WITH CONTRAST:; ; HISTORY: Right lower extremity weakness.; ; CONTRAST: ProHance 15 mL.; ; Decreased signal intensity on T2-weighted images is present in the L2-3 through; L5-S1 intervertebral discs. The L2-3 through L4-5 intervertebral discs are; decreased in height. These findings are consistent with disc degeneration.; ; A diffuse disc bulge is present at the L2-3 level. There is minimal compression; of the thecal sac. The L2 nerves exit the neural foramina without compression.; ; A diffuse disc bulge is present at the L3-4 level. There is minimal compression; of the thecal sac. The L3 nerves exit the neural foramina without compression.; ; A diffuse disc bulge is present at the L4-5 level. There is minimal compression; of the thecal sac. There is hypertrophy of the posterior articulating facets. The; L4 nerves exit the neural foramina without compression.; ; A diffuse disc bulge is present at the L5-S1 level. This abuts the thecal sac.; There is hypertrophy of the posterior articulating facets. The L5 nerves exit the; neural foramina without compression.; ; The conus medullaris terminates at the level of the L1-2 intervertebral disc.; There appears to be a small thoracic spinal cord syrinx. There is no abnormal; enhancement. A hemangioma is present in the L2 vertebral body. Normal signal; intensity is present in the remaining lumbar vertebral bodies.; ; IMPRESSION:; ; 1. Diffuse disc bulges at the L2-3 through L4-5 levels with minimal thecal sac; compression.; ; 2. Diffuse disc bulge at the L5-S1 level. This abuts the thecal sac.; ; 3. Small thoracic spinal cord syrinx. MRI of the thoracic spine may be helpful; for further evaluation.; ; ; Signed by; Chidi Pastrana MD 10/02/2016 04:12 P; Outcome: 18:49 ER care complete, transfer ordered by Provider. pc 20:58 Discharge Assessment: patient administered narcotics - no. The following High Risk rs3 Discharge criteria are identified: None. Transferred by EMS ground [facility] ambulance report to accompanying personnel Peter Saldivar and Te Cabrera. Condition: stable. MRI Study completed. Property :Personal belongings accompany Pt. 20:59 Patient left the ED. rs3 Signatures: Dispatcher [employer] EDMS Damaso Bush MD MD pc Michelson, Staci RN RN srm Jos Gilliam, INVESTIGATOR WELFARE INVESTIGATOR WELFARE kb5 Kerri Collins RN RN rs3 Sheyla Lin RN RN pml Wallace, Sarah sew McGrath, Marlynn mm15 Corrections: (The following items were deleted from the chart) 12:08 12:06 BP 143 / 90; Pulse 77bpm; Resp 16bpm; Pulse Ox 99% RA; Pain 5/10; sew sew 13:41 12:16 PMHx: Brain tumor; srm pc 15:07 15:06 General: resting on stretcher, resps easy and unlabored, skin p/w/d. pml pml MTDD
--- NOTE | 2016-10-02 21:00 | EDDOCDS ---
Physician Documentation [facility] Name: Jeronimo Reza Age: 51 yrs Sex: Male : 1965 Arrival Date: 10/02/2016 Time: 12:04 Bed 15 Private MD: Kentrell Lees MD Disposition: 10/02 18:38 Critical Care: Critical care not applicable. pc Disposition: 10/02/16 18:49 Transfer ordered to [facility]. Diagnosis is Malignant neoplasm of occipital lobe - grade 4 glioblastoma, left parieto-occipital lobe, with extension to right parieto-temporal lobes. - Reason for transfer: Higher level of care. - Accepting physician is Dr. Beltran. - Condition is Stable. - Problem is new. - Symptoms are unchanged. HPI: 13:38 This 51 yrs old Male presents to ER via Wheelchair with complaints of pc Weakness. 13:38 The history is obtained from the patient, the patient's parent. He has been falling due pc to increased right leg weakness over the past week. He has a Glioblastoma with resection x 2, with chronic headaches and an improved head CT done just yesterday. He is falling more frequently and his mother feels he needs admission. They were here yesterday, when she also refused to take him home but with PFS intervention, more home aids and services were arranged. There are no new complaints today. Historical: - Allergies: no known allergies; - Home Meds: 1. Bactrim DS 800-160 mg Oral tab 1 tab once daily 2. Celexa 10 mg Oral tab 1 tab once daily 3. dexamethasone 1 mg Oral tab 3 times per day 4. Eliquis 5 mg oral tab 1 tab 2 times per day 5. levetiracetam 750 mg oral tab 1 tab daily 6. omeprazole 40 mg Oral cpDR nightly - PMHx: Glioblastoma - Left Parietal Lobe; DVT; GERD; Depression; - PSHx: brain surgery; - The history from nurses notes was reviewed: and I agree with what is documented. - Social history: Smoking status: Patient states was never smoker of tobacco. No barriers to communication noted, The patient speaks fluent Latvian, Speaks appropriately for age. - : The pt / caregiver states he / she is on anticoagulants: Eliquis Home medication list is obtained from the patient. - Hospitalizations: : No recent hospitalization is reported. - Exposure Risk Screening:: None identified. - Immunization history:: All immunizations up-to-date. - Family history: Not pertinent. - Social history:: the patient is a non-smoker, the patient does not drink alcohol. ROS: 13:38 MS/Skin/Lymph: chronic painless left leg swelling due to prior DVT. pc 13:38 All systems are negative except as listed. Exam: 13:38 General Appearance: no acute distress, alert. pc 13:38 EENT: normal eye inspection, ears, nose and throat normal, pharynx normal, mucous membranes moist 13:38 Neck: The exam reveals no acute abnormalities. ROM is normal and painless. No nuchal rigidity is noted.. 13:38 Respiratory: no respiratory distress, normal breath sounds, chest non-tender. 13:38 CVS: regular pulse rate, regular rhythm, normal S1 and S2, no murmurs, strong peripheral pulses, normal capillary refill. 13:38 Abdomen: soft, non-tender, no organomegaly, normal bowel sounds. 13:38 Back: normal inspection. 13:38 Skin: skin color is normal, warm, dry. 13:38 Extremities: grossly normal except: noted in the left leg: swelling, 1+ pitting edema, calf nontender. 13:38 Neuro: oriented x 3, no sensory deficits, cranial nerves normal except for Speech is slowed, strength testing is normal except for strength is 4/5 in right leg. the gait was drags right leg, requires left side assistance . 13:38 Psych: normal mood. Vital Signs: 12:06 BP 143 / 90; Pulse 77; Resp 16; Temp 96.7(T); Pulse Ox 99% on R/A; Weight 88 kg / sew 194.01 lbs; Height 5 ft. 5 in. (165.10 cm); Pain 5/10; 12:24 BP 153 / 88 (auto/); rs3 12:26 Pulse Ox 98% ; rs3 17:04 BP 144 / 82 (auto/); rs3 17:05 Pulse 70 MON; Pulse Ox 95% ; rs3 17:36 BP 135 / 76 (auto/); rs3 17:37 Pulse 62 MON; Pulse Ox 97% ; rs3 18:03 Pulse 58 MON; Pulse Ox 98% ; rs3 18:06 BP 141 / 84 (auto/); rs3 18:21 BP 151 / 97 (auto/); rs3 18:22 Pulse 64 MON; Pulse Ox 98% ; rs3 18:41 BP 128 / 73 (auto/); rs3 18:42 Pulse 62 MON; Pulse Ox 96% ; rs3 19:06 BP 139 / 83 (auto/); rs3 19:07 Pulse 62 MON; Pulse Ox 95% ; rs3 19:21 BP 128 / 91 (auto/); rs3 19:22 Pulse 66 MON; Pulse Ox 95% ; rs3 20:12 Pulse 56 MON; rs3 20:15 BP 120 / 75 (auto/); rs3 20:17 Pulse 58 MON; Pulse Ox 96% ; rs3 20:45 Pulse 58 MON; Pulse Ox 93% ; rs3 20:58 BP 150 / 58; Pulse 58 MON; Resp 18; Temp 98.2; Pulse Ox 92% ; Pain 0/10; rs3 12:06 Body Mass Index 32.28 (88.00 kg, 165.10 cm) sew MDM: 13:04 Financial registration complete. mm15 13:20 MRI Screening Tool - Place on chart, inform RN ordered. pc 13:21 IV Saline Lock ordered. pc 13:27 MRI Screening Tool - Place on chart, inform RN complete. jrd 13:38 Differential Diagnosis: RLE weakness with gait disturbance; known glioblastoma r/o pc leptomeningeal metastases. Plan: MRIs. 14:18 [facility] Payment Agreement was scanned into [employer] and attached to record. mm15 14:25 MRI Brain W/O FOLL BY WITH Ordered. EDMS 14:26 MRI LS SPINE W/O FOLL WITH CON Ordered. EDMS 18:30 Dexamethasone 8 mg IV at bolus once ordered. pc 18:38 Data reviewed: old medical records, vital signs, nurses notes, all radiology studies pc and available results. Test interpretation: MRI - interpreted by Radiologist and personally reviewed, Brain (MRI) - expansion of left occipito-parietal glioblastoma to 9x7x6.7cm, with new extension across corpus callosum to right parieto-temporal lobes, minimal edema and shift to the right unchanged from prior studies. The patient has been re-examined and re-evaluated. There is no appreciated change of the patient's symptoms at this time. ED course: Dr. Sheldon is out of town and there is no back up coverage. He will need Neurosurgical consultation services which are not available at [facility]. The family also have asked to be sent to [facility] because they want Oncology arranged through them, to leave the local group.. 18:38 Physician consultation: Dr. Meyers was contacted at 18:41, regarding patient's pc condition, and she advises that he will likely only need increased steroid doses, and not admission. She offered ED consultation should the family and patient wish to come to [facility]. They do wish this service and transfer arrangements will be made . 18:38 Physician consultation: Dr. Beltran was contacted at 18:45, regarding patient's pc condition, and she, the ED attending at [facility], accepts in transfer. Disposition: The historical points, examination findings, and any diagnostic results supporting the provided diagnosis, were discussed with the patient or legal guardian. The decision to transfer to the patient to another facility was explained, based on the need for a required specialist that [facility] does not immediately have available. Administered Medications: 18:42 Drug: Dexamethasone 8 mg [dexamethasone 4 mg/mL injection solution] Route: IV; Rate: rs3 bolus; Site: right forearm; Signatures: Dispatcher [employer] EDMS Damaso Bush MD MD pc Michelson, Staci, RN RN [facility] Kerri Collins RN RN rs3 Radha Miles mm15 Eleazar Davies PCA PCA jrd The chart was reviewed and I authenticate all verbal orders and agree with the evaluation and treatment provided.Corrections: (The following items were deleted from the chart) 13:41 12:16 PMHx: Brain tumor; srm pc 14:25 13:21 MRI-Brain with contrast+MR ordered. EDMS EDMS 14:26 13:22 MRI-Spine, Lumbar with contrast+MR ordered. EDMS EDMS Attachments: 14:18 [facility] [place] Payment Agreement mm15 MTDD
--- NOTE | 2016-10-06 09:54 | EDDOCDS ---
Physician Documentation [facility] Name: Jeronimo Reza Age: 51 yrs Sex: Male : 1965 Arrival Date: 10/02/2016 Time: 12:04 Bed 15 Private MD: Kentrell Lees MD Disposition: 10/02 18:38 Critical Care: Critical care not applicable. pc Disposition: 10/02/16 18:49 Transfer ordered to [facility]. Diagnosis is Malignant neoplasm of occipital lobe - grade 4 glioblastoma, left parieto-occipital lobe, with extension to right parieto-temporal lobes. - Reason for transfer: Higher level of care. - Accepting physician is Dr. Beltran. - Condition is Stable. - Problem is new. - Symptoms are unchanged. HPI: 13:38 This 51 yrs old Male presents to ER via Wheelchair with complaints of pc Weakness. 13:38 The history is obtained from the patient, the patient's parent. He has been falling due pc to increased right leg weakness over the past week. He has a Glioblastoma with resection x 2, with chronic headaches and an improved head CT done just yesterday. He is falling more frequently and his mother feels he needs admission. They were here yesterday, when she also refused to take him home but with PFS intervention, more home aids and services were arranged. There are no new complaints today. Historical: - Allergies: no known allergies; - Home Meds: 1. Bactrim DS 800-160 mg Oral tab 1 tab once daily 2. Celexa 10 mg Oral tab 1 tab once daily 3. dexamethasone 1 mg Oral tab 3 times per day 4. Eliquis 5 mg oral tab 1 tab 2 times per day 5. levetiracetam 750 mg oral tab 1 tab daily 6. omeprazole 40 mg Oral cpDR nightly - PMHx: Glioblastoma - Left Parietal Lobe; DVT; GERD; Depression; - PSHx: brain surgery; - The history from nurses notes was reviewed: and I agree with what is documented. - Social history: Smoking status: Patient states was never smoker of tobacco. No barriers to communication noted, The patient speaks fluent Wolof, Speaks appropriately for age. - : The pt / caregiver states he / she is on anticoagulants: Eliquis Home medication list is obtained from the patient. - Hospitalizations: : No recent hospitalization is reported. - Exposure Risk Screening:: None identified. - Immunization history:: All immunizations up-to-date. - Family history: Not pertinent. - Social history:: the patient is a non-smoker, the patient does not drink alcohol. ROS: 13:38 MS/Skin/Lymph: chronic painless left leg swelling due to prior DVT. pc 13:38 All systems are negative except as listed. Exam: 13:38 General Appearance: no acute distress, alert. pc 13:38 EENT: normal eye inspection, ears, nose and throat normal, pharynx normal, mucous membranes moist 13:38 Neck: The exam reveals no acute abnormalities. ROM is normal and painless. No nuchal rigidity is noted.. 13:38 Respiratory: no respiratory distress, normal breath sounds, chest non-tender. 13:38 CVS: regular pulse rate, regular rhythm, normal S1 and S2, no murmurs, strong peripheral pulses, normal capillary refill. 13:38 Abdomen: soft, non-tender, no organomegaly, normal bowel sounds. 13:38 Back: normal inspection. 13:38 Skin: skin color is normal, warm, dry. 13:38 Extremities: grossly normal except: noted in the left leg: swelling, 1+ pitting edema, calf nontender. 13:38 Neuro: oriented x 3, no sensory deficits, cranial nerves normal except for Speech is slowed, strength testing is normal except for strength is 4/5 in right leg. the gait was drags right leg, requires left side assistance . 13:38 Psych: normal mood. Vital Signs: 12:06 BP 143 / 90; Pulse 77; Resp 16; Temp 96.7(T); Pulse Ox 99% on R/A; Weight 88 kg / sew 194.01 lbs; Height 5 ft. 5 in. (165.10 cm); Pain 5/10; 12:24 BP 153 / 88 (auto/); rs3 12:26 Pulse Ox 98% ; rs3 17:04 BP 144 / 82 (auto/); rs3 17:05 Pulse 70 MON; Pulse Ox 95% ; rs3 17:36 BP 135 / 76 (auto/); rs3 17:37 Pulse 62 MON; Pulse Ox 97% ; rs3 18:03 Pulse 58 MON; Pulse Ox 98% ; rs3 18:06 BP 141 / 84 (auto/); rs3 18:21 BP 151 / 97 (auto/); rs3 18:22 Pulse 64 MON; Pulse Ox 98% ; rs3 18:41 BP 128 / 73 (auto/); rs3 18:42 Pulse 62 MON; Pulse Ox 96% ; rs3 19:06 BP 139 / 83 (auto/); rs3 19:07 Pulse 62 MON; Pulse Ox 95% ; rs3 19:21 BP 128 / 91 (auto/); rs3 19:22 Pulse 66 MON; Pulse Ox 95% ; rs3 20:12 Pulse 56 MON; rs3 20:15 BP 120 / 75 (auto/); rs3 20:17 Pulse 58 MON; Pulse Ox 96% ; rs3 20:45 Pulse 58 MON; Pulse Ox 93% ; rs3 20:58 BP 150 / 58; Pulse 58 MON; Resp 18; Temp 98.2; Pulse Ox 92% ; Pain 0/10; rs3 12:06 Body Mass Index 32.28 (88.00 kg, 165.10 cm) sew MDM: 13:04 Financial registration complete. mm15 13:20 MRI Screening Tool - Place on chart, inform RN ordered. pc 13:21 IV Saline Lock ordered. pc 13:27 MRI Screening Tool - Place on chart, inform RN complete. jrd 13:38 Differential Diagnosis: RLE weakness with gait disturbance; known glioblastoma r/o pc leptomeningeal metastases. Plan: MRIs. 14:18 [facility] Payment Agreement was scanned into [employer] and attached to record. mm15 14:25 MRI Brain W/O FOLL BY WITH Ordered. EDMS 14:26 MRI LS SPINE W/O FOLL WITH CON Ordered. EDMS 18:30 Dexamethasone 8 mg IV at bolus once ordered. pc 18:38 Data reviewed: old medical records, vital signs, nurses notes, all radiology studies pc and available results. Test interpretation: MRI - interpreted by Radiologist and personally reviewed, Brain (MRI) - expansion of left occipito-parietal glioblastoma to 9x7x6.7cm, with new extension across corpus callosum to right parieto-temporal lobes, minimal edema and shift to the right unchanged from prior studies. The patient has been re-examined and re-evaluated. There is no appreciated change of the patient's symptoms at this time. ED course: Dr. Sheldon is out of town and there is no back up coverage. He will need Neurosurgical consultation services which are not available at [facility]. The family also have asked to be sent to [facility] because they want Oncology arranged through them, to leave the local group.. 18:38 Physician consultation: Dr. Meyers was contacted at 18:41, regarding patient's pc condition, and she advises that he will likely only need increased steroid doses, and not admission. She offered ED consultation should the family and patient wish to come to [facility]. They do wish this service and transfer arrangements will be made . 18:38 Physician consultation: Dr. Beltran was contacted at 18:45, regarding patient's pc condition, and she, the ED attending at [facility], accepts in transfer. Disposition: The historical points, examination findings, and any diagnostic results supporting the provided diagnosis, were discussed with the patient or legal guardian. The decision to transfer to the patient to another facility was explained, based on the need for a required specialist that [facility] does not immediately have available. 10/03 09:34 Radiology Report was scanned into [employer] and attached to record. gb Administered Medications: 10/02 18:42 Drug: Dexamethasone 8 mg [dexamethasone 4 mg/mL injection solution] Route: IV; Rate: rs3 bolus; Site: right forearm; Signatures: Dispatcher In Flow EDMS Damaso Bush MD MD pc Michelson, Staci, RN RN [facility] Lissette Key, Kerri Gore RN RN rs3 Radha Miles mm15 Eleazar Davies PCA PCA jrd The chart was reviewed and I authenticate all verbal orders and agree with the evaluation and treatment provided.Corrections: (The following items were deleted from the chart) 13:41 12:16 PMHx: Brain tumor; srm pc 14:25 13:21 MRI-Brain with contrast+MR ordered. EDMS EDMS 14:26 13:22 MRI-Spine, Lumbar with contrast+MR ordered. EDMS EDMS Attachments: 14:18 [facility] Payment Agreement mm15 Chart Complete MTDD
--- NOTE | 2016-10-06 09:54 | EDDOCDS ---
Physician Documentation [facility] Name: Jeronimo Reza Age: 51 yrs Sex: Male : 1965 Arrival Date: 10/02/2016 Time: 12:04 Bed 15 Private MD: Kentrell Lees MD Disposition: 10/02 18:38 Critical Care: Critical care not applicable. pc Disposition: 10/02/16 18:49 Transfer ordered to [facility]. Diagnosis is Malignant neoplasm of occipital lobe - grade 4 glioblastoma, left parieto-occipital lobe, with extension to right parieto-temporal lobes. - Reason for transfer: Higher level of care. - Accepting physician is Dr. Beltran. - Condition is Stable. - Problem is new. - Symptoms are unchanged. HPI: 13:38 This 51 yrs old Male presents to ER via Wheelchair with complaints of pc Weakness. 13:38 The history is obtained from the patient, the patient's parent. He has been falling due pc to increased right leg weakness over the past week. He has a Glioblastoma with resection x 2, with chronic headaches and an improved head CT done just yesterday. He is falling more frequently and his mother feels he needs admission. They were here yesterday, when she also refused to take him home but with PFS intervention, more home aids and services were arranged. There are no new complaints today. Historical: - Allergies: no known allergies; - Home Meds: 1. Bactrim DS 800-160 mg Oral tab 1 tab once daily 2. Celexa 10 mg Oral tab 1 tab once daily 3. dexamethasone 1 mg Oral tab 3 times per day 4. Eliquis 5 mg oral tab 1 tab 2 times per day 5. levetiracetam 750 mg oral tab 1 tab daily 6. omeprazole 40 mg Oral cpDR nightly - PMHx: Glioblastoma - Left Parietal Lobe; DVT; GERD; Depression; - PSHx: brain surgery; - The history from nurses notes was reviewed: and I agree with what is documented. - Social history: Smoking status: Patient states was never smoker of tobacco. No barriers to communication noted, The patient speaks fluent Indonesian, Speaks appropriately for age. - : The pt / caregiver states he / she is on anticoagulants: Eliquis Home medication list is obtained from the patient. - Hospitalizations: : No recent hospitalization is reported. - Exposure Risk Screening:: None identified. - Immunization history:: All immunizations up-to-date. - Family history: Not pertinent. - Social history:: the patient is a non-smoker, the patient does not drink alcohol. ROS: 13:38 MS/Skin/Lymph: chronic painless left leg swelling due to prior DVT. pc 13:38 All systems are negative except as listed. Exam: 13:38 General Appearance: no acute distress, alert. pc 13:38 EENT: normal eye inspection, ears, nose and throat normal, pharynx normal, mucous membranes moist 13:38 Neck: The exam reveals no acute abnormalities. ROM is normal and painless. No nuchal rigidity is noted.. 13:38 Respiratory: no respiratory distress, normal breath sounds, chest non-tender. 13:38 CVS: regular pulse rate, regular rhythm, normal S1 and S2, no murmurs, strong peripheral pulses, normal capillary refill. 13:38 Abdomen: soft, non-tender, no organomegaly, normal bowel sounds. 13:38 Back: normal inspection. 13:38 Skin: skin color is normal, warm, dry. 13:38 Extremities: grossly normal except: noted in the left leg: swelling, 1+ pitting edema, calf nontender. 13:38 Neuro: oriented x 3, no sensory deficits, cranial nerves normal except for Speech is slowed, strength testing is normal except for strength is 4/5 in right leg. the gait was drags right leg, requires left side assistance . 13:38 Psych: normal mood. Vital Signs: 12:06 BP 143 / 90; Pulse 77; Resp 16; Temp 96.7(T); Pulse Ox 99% on R/A; Weight 88 kg / sew 194.01 lbs; Height 5 ft. 5 in. (165.10 cm); Pain 5/10; 12:24 BP 153 / 88 (auto/); rs3 12:26 Pulse Ox 98% ; rs3 17:04 BP 144 / 82 (auto/); rs3 17:05 Pulse 70 MON; Pulse Ox 95% ; rs3 17:36 BP 135 / 76 (auto/); rs3 17:37 Pulse 62 MON; Pulse Ox 97% ; rs3 18:03 Pulse 58 MON; Pulse Ox 98% ; rs3 18:06 BP 141 / 84 (auto/); rs3 18:21 BP 151 / 97 (auto/); rs3 18:22 Pulse 64 MON; Pulse Ox 98% ; rs3 18:41 BP 128 / 73 (auto/); rs3 18:42 Pulse 62 MON; Pulse Ox 96% ; rs3 19:06 BP 139 / 83 (auto/); rs3 19:07 Pulse 62 MON; Pulse Ox 95% ; rs3 19:21 BP 128 / 91 (auto/); rs3 19:22 Pulse 66 MON; Pulse Ox 95% ; rs3 20:12 Pulse 56 MON; rs3 20:15 BP 120 / 75 (auto/); rs3 20:17 Pulse 58 MON; Pulse Ox 96% ; rs3 20:45 Pulse 58 MON; Pulse Ox 93% ; rs3 20:58 BP 150 / 58; Pulse 58 MON; Resp 18; Temp 98.2; Pulse Ox 92% ; Pain 0/10; rs3 12:06 Body Mass Index 32.28 (88.00 kg, 165.10 cm) sew MDM: 13:04 Financial registration complete. mm15 13:20 MRI Screening Tool - Place on chart, inform RN ordered. pc 13:21 IV Saline Lock ordered. pc 13:27 MRI Screening Tool - Place on chart, inform RN complete. jrd 13:38 Differential Diagnosis: RLE weakness with gait disturbance; known glioblastoma r/o pc leptomeningeal metastases. Plan: MRIs. 14:18 [facility] Payment Agreement was scanned into [employer] and attached to record. mm15 14:25 MRI Brain W/O FOLL BY WITH Ordered. EDMS 14:26 MRI LS SPINE W/O FOLL WITH CON Ordered. EDMS 18:30 Dexamethasone 8 mg IV at bolus once ordered. pc 18:38 Data reviewed: old medical records, vital signs, nurses notes, all radiology studies pc and available results. Test interpretation: MRI - interpreted by Radiologist and personally reviewed, Brain (MRI) - expansion of left occipito-parietal glioblastoma to 9x7x6.7cm, with new extension across corpus callosum to right parieto-temporal lobes, minimal edema and shift to the right unchanged from prior studies. The patient has been re-examined and re-evaluated. There is no appreciated change of the patient's symptoms at this time. ED course: Dr. Sheldon is out of town and there is no back up coverage. He will need Neurosurgical consultation services which are not available at [facility]. The family also have asked to be sent to [facility] because they want Oncology arranged through them, to leave the local group.. 18:38 Physician consultation: Dr. Meyers was contacted at 18:41, regarding patient's pc condition, and she advises that he will likely only need increased steroid doses, and not admission. She offered ED consultation should the family and patient wish to come to [facility]. They do wish this service and transfer arrangements will be made . 18:38 Physician consultation: Dr. Beltran was contacted at 18:45, regarding patient's pc condition, and she, the ED attending at [facility], accepts in transfer. Disposition: The historical points, examination findings, and any diagnostic results supporting the provided diagnosis, were discussed with the patient or legal guardian. The decision to transfer to the patient to another facility was explained, based on the need for a required specialist that [facility] does not immediately have available. 10/03 09:34 Radiology Report was scanned into [employer] and attached to record. gb Administered Medications: 10/02 18:42 Drug: Dexamethasone 8 mg [dexamethasone 4 mg/mL injection solution] Route: IV; Rate: rs3 bolus; Site: right forearm; Signatures: Dispatcher [employer] EDMS Damaso Bush MD MD pc Michelson, Staci, RN RN [facility] Lissette Key, Kerri Gore RN RN rs3 Radha Miles mm15 Eleazar Davies PCA PCA jrd The chart was reviewed and I authenticate all verbal orders and agree with the evaluation and treatment provided.Corrections: (The following items were deleted from the chart) 13:41 12:16 PMHx: Brain tumor; srm pc 14:25 13:21 MRI-Brain with contrast+MR ordered. EDMS EDMS 14:26 13:22 MRI-Spine, Lumbar with contrast+MR ordered. EDMS EDMS Attachments: 14:18 [facility] Payment Agreement mm15 Chart Complete MTDD
--- NOTE | 2016-10-06 09:54 | EDDOCDS ---
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 mom states he was seen srm here yesterday for headache and forgot to tell us. after discharge , fell when getting out of the car at home and again in the house. pt has hx of gleoblastoma. Adult Sepsis Screening: The patient does not have new or worsening altered mentation. Patient's respiratory rate is less than 22. Systolic blood pressure is greater than 100. Patient has a qSOFA score of 0- Negative Sepsis Screen. Suicide/Homicide risk assessment- the patient denies having any suicidal and/or homicidal ideations and does not present with any other emotional, behavioral or mental health complaints. Status: Patient is not a central services tech or dependent. Transition of care: patient was not received from another setting of care. 12:08 Method Of Arrival: Wheelchair [facility] 12:08 Acuity: JEFFY Level 3 [facility] Triage Assessment: 12:08 General: Appears in no apparent distress, Behavior is appropriate for age, cooperative. srm Pain: Location: right leg pain Pain currently is 8 out of 10 on a pain scale. HIV screening NA for this visit Offered previously. Historical: - Allergies: no known allergies; - Home Meds: 1. Bactrim DS 800-160 mg Oral tab 1 tab once daily 2. Celexa 10 mg Oral tab 1 tab once daily 3. dexamethasone 1 mg Oral tab 3 times per day 4. Eliquis 5 mg oral tab 1 tab 2 times per day 5. levetiracetam 750 mg oral tab 1 tab daily 6. omeprazole 40 mg Oral cpDR nightly - PMHx: Glioblastoma - Left Parietal Lobe; DVT; GERD; Depression; - PSHx: brain surgery; - The history from nurses notes was reviewed: and I agree with what is documented. - Social history: Smoking status: Patient states was never smoker of tobacco. No barriers to communication noted, The patient speaks fluent [place], Speaks appropriately for age. - : The pt / caregiver states he / she is on anticoagulants: Eliquis Home medication list is obtained from the patient. - Hospitalizations: : No recent hospitalization is reported. - Exposure Risk Screening:: None identified. - Immunization history:: All immunizations up-to-date. - Family history: Not pertinent. - Social history:: the patient is a non-smoker, the patient does not drink alcohol. Screenin:21 Screening information is obtained from the patient. rs3 13:51 Fall risk: At risk due to gait disturbance, prior history of falls. Assistance ADL's: rs3 Requires assistance with meal preparation, this assistance is provided by family members, ambulation, assistance is provided by family members, housework, assistance is provided by family members, medication administration, assistance is provided by family members. Abuse/DV Screen: The patient / caregiver reports he/she is: not in a situation that causes fear, pain or injury. Nutritional screening: No deficits noted. Advance Directives: Currently, there is a health care proxy, Saige Reza (mother). There is an active DNR order but there is no copy available at this time. home support is adequate. Assessment: 13:18 General: Appears in no apparent distress, Behavior is appropriate for age, cooperative. rs3 Pain: Denies pain. Neurological: Level of Consciousness is awake, alert, Oriented to person, place, time, Extrusion Manager are weak on right Weakness in right arm(s) leg(s) Gait is unsteady, Speech is normal, Facial symmetry appears normal, Reports weakness in right leg. . Respiratory: Airway is patent Respiratory effort is even, unlabored, Respiratory pattern is regular, symmetrical. Derm: Skin is pink, warm & dry. Bruising that is on right knee Reports falling due to leg weakness. states" right leg gives out". 14:30 General: patient in MRI. rs3 16:06 General: Appears in no apparent distress, Behavior is appropriate for age, cooperative, rs3 Waiting on MRI results. denies of pain/acute distress. family at bedside. 17:06 General: Appears in no apparent distress, Behavior is appropriate for age, cooperative, rs3 patient requesting food to eat. family at bedside. attending provider with patient and family, made aware of the MRI results. waiting for the further care/plan. reiterate the plan of care. patient and family understands. . Cardiovascular: Capillary refill < 3 seconds. 18:30 General: Appears in no apparent distress, Behavior is cooperative, denies of rs3 pain/distress. report called to [facility] ER given to fox Hernandez RN. patient remains confused, pleasant. keep asking for food. reinforced him on NPO status. . 19:30 General: Appears in no apparent distress, Behavior is appropriate for age, cooperative, rs3 denies of acute distress. watching TV. Waiting for ambulance transfer . 20:47 General: Appears in no apparent distress, Behavior is cooperative, Resting comfortable. rs3 denies of pain/distress. waiting for ambulance transport. breathes easy. denies of headache. . Vital Signs: 12:06 BP 143 / 90; Pulse 77; Resp 16; Temp 96.7(T); Pulse Ox 99% on R/A; Weight 88 kg; Height sew 5 ft. 5 in. (165.10 cm); Pain 5/10; 12:24 BP 153 / 88 (auto/); rs3 12:26 Pulse Ox 98% ; rs3 17:04 BP 144 / 82 (auto/); rs3 17:05 Pulse 70 MON; Pulse Ox 95% ; rs3 17:36 BP 135 / 76 (auto/); rs3 17:37 Pulse 62 MON; Pulse Ox 97% ; rs3 18:03 Pulse 58 MON; Pulse Ox 98% ; rs3 18:06 BP 141 / 84 (auto/); rs3 18:21 BP 151 / 97 (auto/); rs3 18:22 Pulse 64 MON; Pulse Ox 98% ; rs3 18:41 BP 128 / 73 (auto/); rs3 18:42 Pulse 62 MON; Pulse Ox 96% ; rs3 19:06 BP 139 / 83 (auto/); rs3 19:07 Pulse 62 MON; Pulse Ox 95% ; rs3 19:21 BP 128 / 91 (auto/); rs3 19:22 Pulse 66 MON; Pulse Ox 95% ; rs3 20:12 Pulse 56 MON; rs3 20:15 BP 120 / 75 (auto/); rs3 20:17 Pulse 58 MON; Pulse Ox 96% ; rs3 20:45 Pulse 58 MON; Pulse Ox 93% ; rs3 20:58 BP 150 / 58; Pulse 58 MON; Resp 18; Temp 98.2; Pulse Ox 92% ; Pain 0/10; rs3 12:06 Body Mass Index 32.28 (88.00 kg, 165.10 cm) sew Vitals: 12:06 Log In Time: October 02, 2016 at 12:04. sew ED Course: 12:06 Patient visited by Emilie Alarcon. sew 12:06 Kentrell Lees is Private Physician. sew 12:06 Patient moved to Waiting sew 12:08 Patient visited by Emilie Alarcon. sew 12:08 Patient moved to Pre RCE sew 12:13 Triage Initiated srm 12:16 Kerri Collins RN is Primary Nurse. srm 12:16 Patient moved to 15 srm 12:21 Damaso Bush MD is Attending Physician. pc 12:43 Patient visited by Kerri Collins RN. rs3 12:47 Patient visited by Damaso Bush MD. pc 13:18 Patient visited by Kerri Collins RN. rs3 13:51 Patient visited by Kerri Collins RN. rs3 13:52 Inserted saline lock: 22 gauge in right forearm. rs3 14:18 [facility] [place] Payment Agreement was scanned into [employer] and attached to record. mm15 15:15 Patient visited by Damaso Bush MD. pc 16:04 Patient visited by Kerri Collins RN. rs3 16:16 MRI LS SPINE W/O FOLL WITH CON Returned. EDMS 17:02 MRI Brain W/O FOLL BY WITH Returned. EDMS 17:05 Patient visited by Kerri Collins RN. rs3 18:05 Patient visited by Kerri Collins RN. rs3 18:43 Patient visited by Kerri Collins RN. rs3 19:07 Patient visited by Jos Gilliam PCA. [email or web address] 20:06 Patient visited by Jos Gilliam PCA. kb5 20:59 The patient / caregiver is instructed regarding the plan of care and ED course. rs3 20:59 No procedures done that require assistance. rs3 10/03 09:34 Radiology Report was scanned into [employer] and attached to record. gb Administered Medications: 10/02 18:42 Drug: Dexamethasone 8 mg [dexamethasone 4 mg/mL injection solution] Route: IV; Rate: rs3 bolus; Site: right forearm; Order Results: Radiology Order: MRI Brain W/O FOLL BY WITH Test: MRI Brain W/O FOLL BY WITH REASON FOR EXAMINATION: Hx of Glioblastoma, new RLE weakness; MR BRAIN WITHOUT AND WITH CONTRAST:; ; HISTORY: Glioblastoma.; ; CONTRAST: ProHance 15 mL.; ; COMPARISON: MR date 03/19/[address] date 07/29/2016; ; There has been a marked increase in size of the enhancing glioblastoma present in; the left temporal and parietal lobes. There is no extension into the left; occipital lobe, corpus callosum, and posterior right parietal and temporal lobes.; The mass measures 9.2 cm in transverse x 7.2 cm in AP x 6.7 cm in cephalocaudal; dimensions. Surrounding edema is present. The degree of edema is increased; compared to the previous study. There is mass effect with effacement of the; overlying cortical sulci and partial effacement of the posterior body, atrium,; and occipital horn of the left lateral ventricle. There is very minimal mid-shift; to the right. There is no hydrocephalus or extracerebral collection. The sinuses; are clear.; ; IMPRESSION:; ; There has been a marked increase in size of the left temperoparietal lobe; glioblastoma compared to the previous study. There is mass effect with minimal; midline shift to the right and that is unchanged compared to the previous study.; ; ; ; Signed by; Chidi Pastrana MD 10/02/2016 04:30 P; Radiology Order: MRI LS SPINE W/O FOLL WITH CON Test: MRI LS SPINE W/O FOLL WITH CON REASON FOR EXAMINATION: Hx of Glioblastoma new RLE weakness; MRI LUMBAR SPINE WITHOUT AND WITH CONTRAST:; ; HISTORY: Right lower extremity weakness.; ; CONTRAST: ProHance 15 mL.; ; Decreased signal intensity on T2-weighted images is present in the L2-3 through; L5-S1 intervertebral discs. The L2-3 through L4-5 intervertebral discs are; decreased in height. These findings are consistent with disc degeneration.; ; A diffuse disc bulge is present at the L2-3 level. There is minimal compression; of the thecal sac. The L2 nerves exit the neural foramina without compression.; ; A diffuse disc bulge is present at the L3-4 level. There is minimal compression; of the thecal sac. The L3 nerves exit the neural foramina without compression.; ; A diffuse disc bulge is present at the L4-5 level. There is minimal compression; of the thecal sac. There is hypertrophy of the posterior articulating facets. The; L4 nerves exit the neural foramina without compression.; ; A diffuse disc bulge is present at the L5-S1 level. This abuts the thecal sac.; There is hypertrophy of the posterior articulating facets. The L5 nerves exit the; neural foramina without compression.; ; The conus medullaris terminates at the level of the L1-2 intervertebral disc.; There appears to be a small thoracic spinal cord syrinx. There is no abnormal; enhancement. A hemangioma is present in the L2 vertebral body. Normal signal; intensity is present in the remaining lumbar vertebral bodies.; ; IMPRESSION:; ; 1. Diffuse disc bulges at the L2-3 through L4-5 levels with minimal thecal sac; compression.; ; 2. Diffuse disc bulge at the L5-S1 level. This abuts the thecal sac.; ; 3. Small thoracic spinal cord syrinx. MRI of the thoracic spine may be helpful; for further evaluation.; ; ; Signed by; Chidi Pastrana MD 10/02/2016 04:12 P; Outcome: 18:49 ER care complete, transfer ordered by Provider. pc 20:58 Discharge Assessment: patient administered narcotics - no. The following High Risk rs3 Discharge criteria are identified: None. Transferred by EMS ground [facility] ambulance report to accompanying personnel Peter Saldivar and Te Cabrera. Condition: stable. MRI Study completed. Property :Personal belongings accompany Pt. 20:59 Patient left the ED. rs3 Signatures: Dispatcher [employer] EDMS Damaso Bush MD MD pc Kareen Andrew RN RN srm Shahid, Lissette, Reg Reg gb Jos Gilliam, SOAKER SODA WORKER SOAKER SODA WORKER kb5 Kerri Collins RN RN rs3 Sheyla Lin RN RN pml Wallace, Sarah sew McGrath, Marlynn mm15 Corrections: (The following items were deleted from the chart) 12:08 12:06 BP 143 / 90; Pulse 77bpm; Resp 16bpm; Pulse Ox 99% RA; Pain 5/10; sew sew 13:41 12:16 PMHx: Brain tumor; srm pc 15:07 15:06 General: resting on stretcher, resps easy and unlabored, skin p/w/d. pml pml Chart Complete MTDD
== END 2016-10-02 20:59 | disposition short-term general hospital (02) ==
LOC: M ED 12:04
DX: C71.6 Malignant neoplasm of cerebellum (principal); I82.90 Acute embolism and thrombosis of unspecified vein; K21.9 Gastro-esophageal reflux disease without esophagitis; F32.9 Major depressive disorder, single episode, unspecified; Z79.01 Long term (current) use of anticoagulants; Z79.899 Other long term (current) drug therapy
CPT/HCPCS: 70553; 72158; 96374; 99285; A9576; J1100